=== PATIENT | male | born 1985 | race Two or more races ===

== ENCOUNTER 2021-08-05 18:17 | Inpatient (IN) | payer MEDICAID, OTHER ==
[~2021-08-05] VITALS: Ht 167.6 cm; Wt 77.2 kg
[2021-08-05 18:38] LABS: Urine Bacteria NONE SEEN /hpf (None Seen); Urine Blood Negative /uL (Negative); Urine Mucus FEW (None Seen); Urine Specific Gravity 1.029 (1.001-1.035); Urine WBC 3 /hpf (0 - 3)
[2021-08-05] MEDS ORDERED: ONDANSETRON HCL 4 MG/2 ML VIAL IV ONE (19:00)
[2021-08-05] MEDS ORDERED: KETOROLAC TROMETH 30 MG/ML 1ML VIAL IV ONE (19:00)
[2021-08-05] MEDS ORDERED: SODIUM CHLORIDE 0.9% 1,000 ML IV ONE ×2 (19:00→23:30)
[2021-08-05 19:29] LABS: Basophils # (auto) 0 10 ^3/uL (0-0.2); Basophils % (auto) 0.2 % (0.0-2.0); Eosinophils # (auto) 0 10 ^3/uL (0-0.8); Eosinophils % (auto) 0.3 % (0.0-7.0); Hemoglobin 17.8 g/dL (13.5-17.5); Mean Corpuscular Hgb Conc. 33.5 g/dL (32.0-36.0); Monocytes # (auto) 0.6 10 ^3/uL (0-1.3); Nucleated Red Blood Cells % 0.1 %
[2021-08-05 19:30] LABS: Hematocrit 53.3 % (41.0-53.0); Lymphocytes % (auto) 11.2 % (10.0-50.0); Mean Corpuscular Volume 95.6 fL (80.0-100.0); Monocytes % (auto) 6.5 % (0.0-12.0); Neutrophils # (auto) 7.5 10 ^3/uL (1.6-8.6); Neutrophils % (auto) 81.8 % (37.0-80.0); Red Blood Cells 5.57 10^6/uL (4.5-5.90); Red Cell Distribution Width 13.8 % (11.8-14.3); White Blood Cell 9.2 10^3/uL (4.4-10.8)
[2021-08-05 19:47] LABS: Calcium 8.6 mg/dL (8.5-10.1); Potassium 3.4 mmol/L (3.5-5.1)
[2021-08-05 19:53] LABS: Albumin 3.6 g/dL (3.4-5.0); BUN/Creatinine Ratio 10.6; Bilirubin, Total 0.9 mg/dL (0.2-1.0)
[2021-08-05 20:04] LABS: Magnesium 2.2 mg/dL (1.6-2.6)
[2021-08-05] MEDS ORDERED: IOHEXOL 300 MG/ML 100ML BOTTLE IJ ONE (20:29)
[2021-08-05] MEDS ORDERED: CIPROFLOXACIN HCL 500 MG TAB PO ONE (22:30)
[2021-08-05] MEDS ORDERED: PENICILLIN G BENZ 1200000 UNITS/2 ML SYRG IM ONE (22:30)
[2021-08-05] MEDS ORDERED: MORPHINE SULFATE 4 MG/ML SYR/VIAL IV ONE (22:30)
[2021-08-06] MEDS ORDERED: ACETAMINOPHEN 325 MG TAB PO ONE (01:00)
[2021-08-06] MEDS ORDERED: metroNIDAZOLE 500MG/100ML 100 ML IV ONE (01:00)
[2021-08-06] MEDS ORDERED: MORPHINE SULFATE 4 MG/ML SYR/VIAL IV ONE (02:15)
[2021-08-06] MEDS ORDERED: ACETAMINOPHEN 325 MG TAB PO PRN (03:15)
[2021-08-06] MEDS ORDERED: POTASSIUM CHL 20 Meq TABLET PO ONE (03:15)
[2021-08-06] MEDS ORDERED: ONDANSETRON HCL 4 MG/2 ML VIAL IV PRN (03:15)
[2021-08-06] MEDS ORDERED: IBUPROFEN 100MG/5ML ORAL SUSP 100 MG/5 ML UD GT PRN (03:15)
[2021-08-06] MEDS ORDERED: HYDROcodone-ACET 5/325MG TAB PO PRN (03:15)
[2021-08-06] MEDS ORDERED: DOCUSATE SOD 100 MG CAP PO PRN (03:15)
[2021-08-06] MEDS: SODIUM CHLORIDE 0.9% 1,000 ML IV SCH ×2 (03:45→17:35)
[2021-08-06] MEDS ORDERED: NITROGLYCERIN 0.4 MG SL TAB SL PRN (06:15)
[2021-08-06] MEDS ORDERED: MORPHINE SULFATE INJECTION 2 MG/ML SYRG IV PRN (06:15)
[2021-08-06 07:09] LABS: Basophils # (auto) 0 10 ^3/uL (0-0.2); Basophils % (auto) 0.3 % (0.0-2.0); Eosinophils # (auto) 0 10 ^3/uL (0-0.8); Eosinophils % (auto) 0.1 % (0.0-7.0); Hemoglobin 15.6 g/dL (13.5-17.5); Lymphocytes # (auto) 0.7 10 ^3/uL (0.4-5.4); Lymphocytes % (auto) 13.5 % (10.0-50.0); Mean Corpuscular Hemoglobin 32.9 pg (28.0-32.0); Mean Corpuscular Hgb Conc. 34.7 g/dL (32.0-36.0); Mean Corpuscular Volume 94.8 fL (80.0-100.0); Monocytes # (auto) 0.3 10 ^3/uL (0-1.3); Monocytes % (auto) 6.1 % (0.0-12.0); Red Blood Cells 4.74 10^6/uL (4.5-5.90); Red Cell Distribution Width 13.5 % (11.8-14.3)
[2021-08-06 07:29] LABS: Albumin 2.7 g/dL (3.4-5.0); BUN/Creatinine Ratio 13.6; Calcium 7.6 mg/dL (8.5-10.1); Potassium 3.1 mmol/L (3.5-5.1)
[2021-08-06 07:32] LABS: Total Protein 5.6 g/dL (6.4-8.2)
[2021-08-06] MEDS: SULFAMETH-TRIMETH 80/16MG-ML 10 ML in D5W 5% 250 ML IV SCH ×3 (09:03→21:48)
[2021-08-06] MEDS: ASCORBIC ACID 500 MG TAB PO SCH ×2 (09:18→21:49)
[2021-08-06] MEDS: FAMOTIDINE (10MG/ML) 2ML VL IV SCH ×2 (09:18→21:48)
[2021-08-06] MEDS: ENOXAPARIN SOD 40 MG/0.4 ML SYRINGE SC SCH (09:18)
[2021-08-06] MEDS: MULTIPLE VITAMIN TAB PO SCH (09:18)
[2021-08-06] MEDS: ZINC SULFATE 220mg CAP or TAB PO SCH (09:18)
[2021-08-06] MEDS: cefTRIAXone 1GM/50ML D5W 50 ML IV SCH (10:07)
[2021-08-06] MEDS: metroNIDAZOLE 500MG/100ML 100 ML IV SCH ×2 (12:00→17:35)
[2021-08-06] MEDS ORDERED: POTASSIUM EFFERVESENT TAB 25 MEQ GT ONE (12:45)
[2021-08-06 13:30] VITALS: BP 94/61
[2021-08-06] MEDS ORDERED: QUET25TA37 PO (16:56)
[2021-08-06 17:36] VITALS: BP 100/61
[2021-08-06] MEDS ORDERED: EMTR1TAB12 PO (18:24)
[2021-08-06 22:00] VITALS: BP 108/55
[2021-08-06] MEDS: MORPHINE SULFATE 4 MG/ML SYR/VIAL IV PRN (22:00)
[2021-08-07] MEDS: metroNIDAZOLE 500MG/100ML 100 ML IV SCH ×3 (01:59→17:45)
[2021-08-07 05:00] VITALS: BP 97/65
[2021-08-07 05:02] LABS: Basophils # (auto) 0.1 10 ^3/uL (0-0.2); Eosinophils # (auto) 0.1 10 ^3/uL (0-0.8); Hematocrit 45.8 % (41.0-53.0); Hemoglobin 15.8 g/dL (13.5-17.5); Lymphocytes # (auto) 1.2 10 ^3/uL (0.4-5.4); Lymphocytes % (auto) 24.2 % (10.0-50.0); Mean Corpuscular Hemoglobin 32.7 pg (28.0-32.0); Mean Corpuscular Hgb Conc. 34.5 g/dL (32.0-36.0); Mean Corpuscular Volume 94.7 fL (80.0-100.0); Monocytes # (auto) 0.4 10 ^3/uL (0-1.3); Monocytes % (auto) 8.6 % (0.0-12.0); Neutrophils # (auto) 3.2 10 ^3/uL (1.6-8.6); Neutrophils % (auto) 64.2 % (37.0-80.0); Nucleated Red Blood Cells % 0.1 %; Red Blood Cells 4.83 10^6/uL (4.5-5.90); Red Cell Distribution Width 13.9 % (11.8-14.3); White Blood Cell 4.9 10^3/uL (4.4-10.8)
[2021-08-07] MEDS: DIPHENOXYLATE W/ATROPINE 2.5 MG TAB PO PRN ×2 (05:22→17:09)
[2021-08-07 05:23] LABS: Calcium 8.2 mg/dL (8.5-10.1); Potassium 3.6 mmol/L (3.5-5.1)
[2021-08-07 05:25] LABS: BUN/Creatinine Ratio 9.7
[2021-08-07] MEDS: SULFAMETH-TRIMETH 80/16MG-ML 10 ML in D5W 5% 250 ML IV SCH ×3 (05:35→22:28)
[2021-08-07] MEDS: MORPHINE SULFATE 4 MG/ML SYR/VIAL IV PRN ×3 (06:50→18:49)
[2021-08-07] MEDS: FAMOTIDINE (10MG/ML) 2ML VL IV SCH ×2 (08:31→22:28)
[2021-08-07] MEDS: ZINC SULFATE 220mg CAP or TAB PO SCH (08:31)
[2021-08-07] MEDS: cefTRIAXone 1GM/50ML D5W 50 ML IV SCH (08:31)
[2021-08-07] MEDS: MULTIPLE VITAMIN TAB PO SCH (08:32)
[2021-08-07] MEDS: ASCORBIC ACID 500 MG TAB PO SCH ×2 (08:32→22:28)
[2021-08-07] MEDS: ENOXAPARIN SOD 40 MG/0.4 ML SYRINGE SC SCH (08:32)
[2021-08-07 09:00] VITALS: BP 99/62
[2021-08-07] MEDS: SODIUM CHLORIDE 0.9% 1,000 ML IV SCH (10:51)
[2021-08-07 13:00] VITALS: BP 97/65
[2021-08-07 17:00] VITALS: BP 92/57
[2021-08-07 22:03] VITALS: BP 89/58
[2021-08-08] MEDS: metroNIDAZOLE 500MG/100ML 100 ML IV SCH ×2 (01:41→08:06)
[2021-08-08 04:47] VITALS: BP 98/57
[2021-08-08 05:17] LABS: Basophils # (auto) 0 10 ^3/uL (0-0.2); Basophils % (auto) 0.3 % (0.0-2.0); Eosinophils # (auto) 0.1 10 ^3/uL (0-0.8); Eosinophils % (auto) 2.9 % (0.0-7.0); Hematocrit 46.5 % (41.0-53.0); Hemoglobin 16.1 g/dL (13.5-17.5); Lymphocytes # (auto) 1.5 10 ^3/uL (0.4-5.4); Lymphocytes % (auto) 29.5 % (10.0-50.0); Mean Corpuscular Hemoglobin 33.3 pg (28.0-32.0); Mean Corpuscular Hgb Conc. 34.7 g/dL (32.0-36.0); Monocytes # (auto) 0.5 10 ^3/uL (0-1.3); Monocytes % (auto) 9.2 % (0.0-12.0); Neutrophils % (auto) 58.1 % (37.0-80.0); Nucleated Red Blood Cells % 0.2 %; Red Blood Cells 4.85 10^6/uL (4.5-5.90); Red Cell Distribution Width 13.8 % (11.8-14.3); White Blood Cell 5.1 10^3/uL (4.4-10.8)
[2021-08-08 05:44] LABS: Potassium 3.7 mmol/L (3.5-5.1)
[2021-08-08 05:57] LABS: BUN/Creatinine Ratio 8.6; Calcium 8.3 mg/dL (8.5-10.1)
[2021-08-08] MEDS: SODIUM CHLORIDE 0.9% 1,000 ML IV SCH (06:25)
[2021-08-08] MEDS: SULFAMETH-TRIMETH 80/16MG-ML 10 ML in D5W 5% 250 ML IV SCH (06:26)
[2021-08-08] MEDS: cefTRIAXone 1GM/50ML D5W 50 ML IV SCH (08:05)
[2021-08-08] MEDS: FAMOTIDINE (10MG/ML) 2ML VL IV SCH (08:06)
[2021-08-08] MEDS: ZINC SULFATE 220mg CAP or TAB PO SCH (08:06)
[2021-08-08] MEDS: ENOXAPARIN SOD 40 MG/0.4 ML SYRINGE SC SCH (08:07)
[2021-08-08] MEDS: ASCORBIC ACID 500 MG TAB PO SCH (08:07)
[2021-08-08] MEDS: MULTIPLE VITAMIN TAB PO SCH (08:15)
[2021-08-08 09:11] VITALS: BP 110/58
[2021-08-08] MEDS ORDERED: DIPH2.5T73 PO ×2 (10:17→10:18)
[2021-08-08] MEDS ORDERED: METR500T PO (10:18)
[2021-08-08] MEDS ORDERED: CIPR-173 PO (10:18)
[2021-08-08 10:28] VITALS: BP 146/80
== END 2021-08-08 15:00 | disposition home or self-care (01) | DRG 248 ==
LOC: ER 18:19 → OVERFLOW 08-06 06:07 → CENTRAL 08-06 13:25
PROVIDERS: ADMIT Nurse Practitioner Family; ATTEND Internal Medicine Pulmonary Disease
DX: A04.9 Bacterial intestinal infection, unspecified (principal); E87.6 Hypokalemia; F31.9 Bipolar disorder, unspecified; N39.0 Urinary tract infection, site not specified; F17.210 Nicotine dependence, cigarettes, uncomplicated; Z83.3 Family history of diabetes mellitus; Z90.49 Acquired absence of other specified parts of digestive tract; Z71.6 Tobacco abuse counseling; Z20.822 Contact with and (suspected) exposure to COVID-19
CPT/HCPCS: 36415; 74177; 80048; 80053; 81001; 83605; 83690; 83735; 85025; 85048; 86360; 87040; 87045; 87086; 87426; 87427; 96361; 96365; 96372; 96375; 96376; G0378; J0561; J0696; J1885; J2405; J3490; J7060

== ENCOUNTER 2022-01-31 06:42 | Emergency (ER) | payer MEDICAID, OTHER ==
[~2022-01-31] VITALS: Ht 167.6 cm; Wt 77.1 kg
[~2022-01-31 06:42] MED LIST: CIPR-173 PO; DIPH2.5T73 PO; EMTR1TAB12 PO; METR500T PO; QUET25TA37 PO
[2022-01-31] MEDS ORDERED: ALBUAER3 IN (08:23)
[2022-01-31] MEDS ORDERED: DOXY-286 PO (08:23)
[2022-01-31] MEDS ORDERED: ACET-1158 PO (08:23)
[2022-01-31] MEDS ORDERED: PRED10TA PO (08:23)
[2022-01-31 08:30] VITALS: BP 120/72
[2022-01-31] MEDS ORDERED: cefTRIAXone SOD 1,000 MG VL IM ONE (08:30)
[2022-01-31] MEDS ORDERED: methylPREDNISolone ACETATE 80 MG/ML VL ONE (13:44)
[2022-01-31] MEDS ORDERED: BUPIVACAINE HCL 0.25% P/F 10 ML VIAL ONE (13:44)
[2022-01-31] MEDS ORDERED: LIDOCAINE 2%HCL (LOCAL ANESTH.) INJ 10ml MDV ONE (13:44)
== END 2022-01-31 09:10 | disposition home or self-care (01) ==
LOC: ER 06:42
DX: J06.9 Acute upper respiratory infection, unspecified (principal); F17.210 Nicotine dependence, cigarettes, uncomplicated; Z90.49 Acquired absence of other specified parts of digestive tract; Z20.822 Contact with and (suspected) exposure to COVID-19
CPT/HCPCS: 36415; 71045; 87426; 96372; 99284; J0696; J1040; J2001; J3490